=== PATIENT | female | born 1935 | race African-American/Black ===

== ENCOUNTER 2018-03-09 06:04 | Inpatient (IN) | payer MEDICARE, MEDICAID ==
[~2018-03-09] VITALS: Ht 165.1 cm; Wt 51.7 kg
[~2018-03-09 06:04] MED LIST: CARV6.2548 PO; CINA30 PO; DILT360C31 PO; FURO20TA4 PO; HYDR10TA34 PO; NEPVIT PO; OMEP20CA10 PO; PRAV40TA58 PO; SEVE800T8 PO
[2018-03-09 07:59] LABS: BASOPHILS % 0.9 % (0.0-2.0); EOSINOPHILS % 4.1 % (0.0-5.0); HEMATOCRIT. 35.1 % (36.0-48.0); LYMPHOCYTES % 9.6 % (20.0-50.0); MEAN CORPUSCULAR HEMOGLOBIN 27.2 pg (28.0-32.0); MEAN CORPUSCULAR VOLUME 87.3 fL (81.0-99.0); MEAN PLATELET VOLUME 8.9 fl (7.4-10.4); MONOCYTES % 6.7 % (2.0-8.0); NEUTROPHILS % 78.7 % (40.0-76.0); PLATELET 362 x1000/uL (130-400); RED BLOOD CELL COUNT 4.03 mill/uL (4.2-5.4); RED CELL DISTRIBUTION WIDTH 19.8 % (11.6-14.6)
[2018-03-09 09:17] LABS: CHLORIDE 101 mEq/L (98-107)
[2018-03-09 09:19] LABS: INR 1.1; PARTIAL THROMBOPLASTIN TIME 26.4 sec (23.4-31.0); PROTHROMBIN TIME 11.1 sec (9.1-11.1)
[2018-03-09 16:22] VITALS: BP 135/59
[2018-03-09 16:50] VITALS: BP 135/59
[2018-03-09] MEDS ORDERED: PANT40TA4 PO (17:56)
[2018-03-09] MEDS ORDERED: TRAV2.5D OP (17:56)
[2018-03-09] MEDS ORDERED: SUCR1TAB PO (17:56)
[2018-03-09] MEDS ORDERED: FURO40TA5 PO (17:56)
[2018-03-09] MEDS ORDERED: ACET-2178 PO (17:56)
[2018-03-09] MEDS ORDERED: FOLI1TAB63 PO (17:56)
[2018-03-09] MEDS ORDERED: ATOR20TA65 PO (17:56)
[2018-03-09] MEDS ORDERED: ONDANSETRON HCL 4MG/2ML INJ IV PRN (18:00)
[2018-03-09] MEDS ORDERED: ACETAMINOPHEN 325MG TABLET PO PRN (18:00)
[2018-03-09] MEDS ORDERED: MAGNESIUM/ALUMINUM HYDROXIDE/SIMETHICONE 30ML UDC PO PRN (18:00)
[2018-03-09] MEDS ORDERED: IPRATROPIUM/ALBUTEROL 0.5-3(2.5)MG/3ML NEB INH PRN (18:00)
[2018-03-09] MEDS ORDERED: DIPHENHYDRAMINE 50MG/ML VIAL IV PRN (18:00)
[2018-03-09] MEDS ORDERED: CLONIDINE 0.1MG TABLET PO PRN (18:00)
[2018-03-09] MEDS ORDERED: LORAZEPAM 2MG/ML CPJ IV PRN (18:00)
[2018-03-09] MEDS ORDERED: HYDROCODONE/APAP 7.5/325MG 1 TAB TABLET PO PRN (18:00)
[2018-03-09] MEDS ORDERED: HYDRALAZINE 20MG/ML VIAL IV PRN (18:00)
[2018-03-09] MEDS ORDERED: GUAIFENESIN 200MG/10ML SUGAR FREE UDC PO PRN (18:00)
[2018-03-09] MEDS ORDERED: HYDROMORPHONE HCL/PF 2MG/ML CPJ IV PRN (18:00)
[2018-03-09] MEDS ORDERED: DOCUSATE SODIUM 100MG CAPSULE PO PRN (18:00)
[2018-03-09 20:00] VITALS: BP 130/58
[2018-03-09] MEDS: SODIUM CHLORIDE 0.9% INJ 3ML FLUSH IVF SCH (22:13)
[2018-03-09 22:21] LABS: CREATINE KINASE 23 IU/L (26-192)
[2018-03-09 22:22] LABS: CREATINE KINASE MB FRACTION < 1.0 ng/mL (0.5-3.6)
[2018-03-10] VITALS (8 sets, daily range): BP systolic 105–128; BP diastolic 43–74
[2018-03-10] MEDS: SODIUM CHLORIDE 0.9% INJ 3ML FLUSH IVF SCH ×3 (05:35→21:04)
[2018-03-10 06:44] LABS: BASOPHILS % 0.8 % (0.0-2.0); EOSINOPHILS % 11.5 % (0.0-5.0); HEMATOCRIT. 29.8 % (36.0-48.0); HEMOGLOBIN. 9.6 g/dL (12.0-16.0); LYMPHOCYTES % 24.3 % (20.0-50.0); MEAN CORPUSCULAR HEMOGLOBIN 27.7 pg (28.0-32.0); MEAN CORPUSCULAR VOLUME 86.1 fL (81.0-99.0); MEAN PLATELET VOLUME 8.4 fl (7.4-10.4); NEUTROPHILS % 54.4 % (40.0-76.0); PLATELET 425 x1000/uL (130-400); RED BLOOD CELL COUNT 3.46 mill/uL (4.2-5.4); RED CELL DISTRIBUTION WIDTH 19.2 % (11.6-14.6)
[2018-03-10 06:47] LABS: CHLORIDE 105 mEq/L (98-107)
[2018-03-10 06:57] LABS: CREATINE KINASE 16 IU/L (26-192); T4 FREE 1.04 ng/dL (0.76-1.46)
[2018-03-10 06:59] LABS: CREATINE KINASE MB FRACTION < 1.0 ng/mL (0.5-3.6)
[2018-03-10] MEDS: CARVEDILOL 6.25 MG TABLET PO SCH (21:00)
[2018-03-11] VITALS: BP 129/55
[2018-03-11 04:00] VITALS: BP 122/60
[2018-03-11] MEDS: SODIUM CHLORIDE 0.9% INJ 3ML FLUSH IVF SCH (06:13)
[2018-03-11 08:00] VITALS: BP 128/57
[2018-03-11 08:01] LABS: BASOPHILS % 0.8 % (0.0-2.0); EOSINOPHILS % 11.4 % (0.0-5.0); HEMATOCRIT. 31.6 % (36.0-48.0); LYMPHOCYTES % 24.5 % (20.0-50.0); MEAN CORPUSCULAR HEMOGLOBIN 27.2 pg (28.0-32.0); MEAN CORPUSCULAR VOLUME 86.1 fL (81.0-99.0); MEAN PLATELET VOLUME 8.3 fl (7.4-10.4); MONOCYTES % 8.5 % (2.0-8.0); NEUTROPHILS % 54.8 % (40.0-76.0); PLATELET 393 x1000/uL (130-400); RED BLOOD CELL COUNT 3.66 mill/uL (4.2-5.4); RED CELL DISTRIBUTION WIDTH 18.9 % (11.6-14.6)
[2018-03-11] MEDS: CARVEDILOL 6.25 MG TABLET PO SCH (09:21)
[2018-03-11 12:00] VITALS: BP 127/79
[2018-03-11 12:54] VITALS: BP 121/79
== END 2018-03-11 14:15 | disposition home or self-care (01) | DRG 377 ==
LOC: ER 06:04 → 8WST 11:52 → EDBEDREQ 11:54 → ENRESERV 14:01
PROVIDERS: ADMIT Internal Medicine; ATTEND Internal Medicine
PROC: 5A1D70Z Performance of Urinary Filtration, Intermittent, Less than 6 Hours Per Day (ICD-10-PCS; principal; 2018-03-10)
DX: K29.71 Gastritis, unspecified, with bleeding (principal); N18.6 End stage renal disease; I12.0 Hypertensive chronic kidney disease with stage 5 chronic kidney disease or end stage renal disease; J90 Pleural effusion, not elsewhere classified; R65.10 Systemic inflammatory response syndrome (SIRS) of non-infectious origin without acute organ dysfunction; E46 Unspecified protein-calorie malnutrition; Z68.1 Body mass index [BMI] 19.9 or less, adult; D64.9 Anemia, unspecified; E11.22 Type 2 diabetes mellitus with diabetic chronic kidney disease; E87.70 Fluid overload, unspecified; I25.10 Atherosclerotic heart disease of native coronary artery without angina pectoris; Z99.2 Dependence on renal dialysis; Z88.8 Allergy status to other drugs, medicaments and biological substances; Z79.84 Long term (current) use of oral hypoglycemic drugs
CPT/HCPCS: 36415; 71045; 80048; 82550; 82553; 84439; 84443; 84484; 93005; 96374; 96375; 99285; J1200

== ENCOUNTER 2018-03-26 05:53 | Inpatient (IN) | payer MEDICARE, MEDICAID ==
[~2018-03-26] VITALS: Ht 152.4 cm; Wt 52.6 kg
[~2018-03-26 05:53] MED LIST changes: +ACET-2178 PO; +ATOR20TA65 PO; -DILT360C31 PO; +FOLI1TAB63 PO; -FURO20TA4 PO; +FURO40TA5 PO; -HYDR10TA34 PO; -OMEP20CA10 PO; +PANT40TA4 PO; -PRAV40TA58 PO; -SEVE800T8 PO; +SUCR1TAB PO; +TRAV2.5D OP
[2018-03-26] MEDS ORDERED: IPRATROPIUM BROMIDE (0.02%) 0.5MG/2.5ML NEB HHN STA (06:33)
[2018-03-26] MEDS ORDERED: ALBUTEROL (0.083%) 2.5MG/3ML NEB HHN STA (06:33)
[2018-03-26] MEDS ORDERED: PIPERACILLIN/TAZ 3.375G PREMIX 50 ML IV ONE (08:15)
[2018-03-26] MEDS ORDERED: LEVOFLOXACIN 500MG PREMIX 100 ML IV ONE (08:15)
[2018-03-26 08:50] LABS: CHLORIDE 100 mEq/L (98-107)
[2018-03-26 08:51] LABS: BASOPHILS % 0.4 % (0.0-2.0); HEMATOCRIT. 27.8 % (36.0-48.0); HEMOGLOBIN. 8.7 g/dL (12.0-16.0); LYMPHOCYTES % 12.8 % (20.0-50.0); MEAN CORPUSCULAR HEMOGLOBIN 26.2 pg (28.0-32.0); MEAN CORPUSCULAR VOLUME 83.5 fL (81.0-99.0); MEAN PLATELET VOLUME 8.5 fl (7.4-10.4); MONOCYTES % 11.5 % (2.0-8.0); NEUTROPHILS % 70.3 % (40.0-76.0); PLATELET 437 x1000/uL (130-400); RED BLOOD CELL COUNT 3.33 mill/uL (4.2-5.4); RED CELL DISTRIBUTION WIDTH 18.6 % (11.6-14.6)
[2018-03-26 08:53] LABS: INR 1.1; PARTIAL THROMBOPLASTIN TIME 27.5 sec (23.4-31.0); PROTHROMBIN TIME 11.4 sec (9.1-11.1)
[2018-03-26 08:57] LABS: PHOSPHORUS 3.2 mg/dL (2.5-4.9)
[2018-03-26] MEDS ORDERED: NA PHOS,M-B/NA PHOS,DI-BA ENEMA 118ML PR PRN (09:15)
[2018-03-26] MEDS ORDERED: LEVOFLOXACIN 500MG PREMIX 100 ML IV SCH (09:15)
[2018-03-26] MEDS ORDERED: ONDANSETRON HCL 4MG/2ML INJ IV PRN (09:15)
[2018-03-26] MEDS ORDERED: MAGNESIUM/ALUMINUM HYDROXIDE/SIMETHICONE 30ML UDC PO PRN (09:15)
[2018-03-26] MEDS ORDERED: ENOXAPARIN 40MG/0.4ML SYR SUBCUT SCH (09:15)
[2018-03-26] MEDS ORDERED: MORPHINE SULFATE 4 MG/ML CPJ (NOT FOR IM USE) IV PRN (09:15)
[2018-03-26] MEDS ORDERED: LORAZEPAM 2MG/ML CPJ IV PRN (09:15)
[2018-03-26] MEDS ORDERED: CLONIDINE 0.1MG TABLET PO PRN (09:15)
[2018-03-26] MEDS ORDERED: GUAIFENESIN 200MG/10ML SUGAR FREE UDC PO PRN (09:15)
[2018-03-26] MEDS ORDERED: HYDROCODONE/ACETAMINOPHEN 5/325MG TABLET PO PRN (09:15)
[2018-03-26] MEDS ORDERED: IPRATROPIUM/ALBUTEROL 0.5-3(2.5)MG/3ML NEB INH PRN (09:15)
[2018-03-26] MEDS ORDERED: DOCUSATE SODIUM 100MG CAPSULE PO PRN (09:15)
[2018-03-26] MEDS ORDERED: DIPHENHYDRAMINE 50MG/ML VIAL IV PRN (09:15)
[2018-03-26 16:53] VITALS: BP 125/53
[2018-03-26] MEDS ORDERED: CEFTRIAXONE 1 G PREMIX 50 ML IV ONE (17:00)
[2018-03-26] MEDS: ENOXAPARIN 30MG/0.3ML SYR SUBCUT SCH (17:30)
[2018-03-26] MEDS: CARVEDILOL 3.125 MG TABLET PO SCH (17:41)
[2018-03-26] MEDS ORDERED: CEFTRIAXONE 1,000 MG in DEXTROSE 5% WATER 50 ML IV NR (18:30)
[2018-03-26 20:00] VITALS: BP 117/44
[2018-03-26] MEDS: IPRATROPIUM/ALBUTEROL 0.5-3(2.5)MG/3ML NEB HHN SCH (20:29)
[2018-03-26] MEDS ORDERED: DEXTROSE 50% WATER 50ML SYRINGE IV PRN (20:30)
[2018-03-26] MEDS: AZITHROMYCIN 500 MG in DEXT 5% WATER 250 ML IV SCH (20:49)
[2018-03-26] MEDS: ACETAMINOPHEN 325MG TABLET PO PRN (20:50)
[2018-03-26] MEDS: BLOOD SUGAR DIAGNOSTIC STRIP TEST SCH (20:50)
[2018-03-26] MEDS: AMLODIPINE 5MG TABLET PO SCH (20:50)
[2018-03-26] MEDS: INSULIN LISPRO 100 UNITS/ML SUBCUT SCH (20:50)
[2018-03-27] VITALS: BP 121/52
[2018-03-27] MEDS: IPRATROPIUM/ALBUTEROL 0.5-3(2.5)MG/3ML NEB HHN SCH ×4 (01:00→21:15)
[2018-03-27 04:00] VITALS: BP 133/62
[2018-03-27] MEDS: BLOOD SUGAR DIAGNOSTIC STRIP TEST SCH ×4 (07:40→21:00)
[2018-03-27 08:00] VITALS: BP 102/89
[2018-03-27 08:05] LABS: CHLORIDE 102 mEq/L (98-107)
[2018-03-27 08:06] LABS: HEMATOCRIT. 28.2 % (36.0-48.0); HEMOGLOBIN. 8.9 g/dL (12.0-16.0); MEAN CORPUSCULAR HEMOGLOBIN 26.3 pg (28.0-32.0); MEAN CORPUSCULAR VOLUME 83.7 fL (81.0-99.0); MEAN PLATELET VOLUME 8.5 fl (7.4-10.4); PLATELET 422 x1000/uL (130-400); RED BLOOD CELL COUNT 3.36 mill/uL (4.2-5.4); RED CELL DISTRIBUTION WIDTH 18.7 % (11.6-14.6)
[2018-03-27] MEDS: INSULIN LISPRO 100 UNITS/ML SUBCUT SCH ×4 (08:10→21:00)
[2018-03-27 08:19] LABS: LDL CHOLESTEROL 36 mg/dL (5-100)
[2018-03-27 08:21] LABS: HDL CHOLESTEROL 48 mg/dL (40-59)
[2018-03-27] MEDS: AMLODIPINE 5MG TABLET PO SCH ×2 (09:00→21:59)
[2018-03-27] MEDS: CARVEDILOL 3.125 MG TABLET PO SCH ×2 (09:00→17:42)
[2018-03-27] MEDS: ASPIRIN 81MG EC TABLET PO SCH (09:00)
[2018-03-27 12:00] VITALS: BP 108/50
[2018-03-27 13:34] LABS: PLATELET ESTIMATE SLIGHTLY INCREASED
[2018-03-27] MEDS: ENOXAPARIN 30MG/0.3ML SYR SUBCUT SCH (17:30)
[2018-03-27 20:00] VITALS: BP_SYST 107; BP_SYST 115; BP_DIAS 39; BP_DIAS 53
[2018-03-27] MEDS: BUDESONIDE 0.5MG/2ML NEB HHN SCH (21:15)
[2018-03-27] MEDS: AZITHROMYCIN 500 MG in DEXT 5% WATER 250 ML IV SCH (21:57)
[2018-03-27] MEDS: ACETAMINOPHEN 325MG TABLET PO PRN (22:56)
[2018-03-28] VITALS: BP 105/34
[2018-03-28] MEDS: IPRATROPIUM/ALBUTEROL 0.5-3(2.5)MG/3ML NEB HHN SCH ×2 (02:31→22:07)
[2018-03-28 04:00] VITALS: BP 107/47
[2018-03-28] MEDS: BLOOD SUGAR DIAGNOSTIC STRIP TEST SCH ×4 (07:40→21:00)
[2018-03-28 08:00] VITALS: BP 124/54
[2018-03-28] MEDS: INSULIN LISPRO 100 UNITS/ML SUBCUT SCH ×4 (08:10→21:00)
[2018-03-28] MEDS: AMLODIPINE 5MG TABLET PO SCH ×2 (10:32→20:57)
[2018-03-28] MEDS: ASPIRIN 81MG EC TABLET PO SCH (10:32)
[2018-03-28] MEDS: CARVEDILOL 3.125 MG TABLET PO SCH ×2 (10:33→18:48)
[2018-03-28 12:00] VITALS: BP 144/65
[2018-03-28 16:00] VITALS: BP 137/61
[2018-03-28] MEDS: ENOXAPARIN 30MG/0.3ML SYR SUBCUT SCH (18:49)
[2018-03-28 20:00] VITALS: BP 106/42
[2018-03-28] MEDS: AZITHROMYCIN 500 MG in DEXT 5% WATER 250 ML IV SCH (20:45)
[2018-03-28] MEDS: ACETAMINOPHEN 325MG TABLET PO PRN (21:05)
[2018-03-28] MEDS: BUDESONIDE 0.5MG/2ML NEB HHN SCH (22:08)
[2018-03-29] VITALS (7 sets, daily range): BP systolic 92–122; BP diastolic 37–70
[2018-03-29] MEDS: IPRATROPIUM/ALBUTEROL 0.5-3(2.5)MG/3ML NEB HHN SCH ×4 (02:37→21:34)
[2018-03-29] MEDS: INSULIN LISPRO 100 UNITS/ML SUBCUT SCH ×4 (06:35→21:00)
[2018-03-29] MEDS: BLOOD SUGAR DIAGNOSTIC STRIP TEST SCH ×4 (06:35→21:32)
[2018-03-29] MEDS: BUDESONIDE 0.5MG/2ML NEB HHN SCH ×2 (08:30→21:34)
[2018-03-29] MEDS: CARVEDILOL 3.125 MG TABLET PO SCH ×2 (09:00→18:06)
[2018-03-29] MEDS: AMLODIPINE 5MG TABLET PO SCH ×2 (09:00→21:00)
[2018-03-29] MEDS: ASPIRIN 81MG EC TABLET PO SCH (09:03)
[2018-03-29 15:26] LABS: HEMATOCRIT 30.2 % (36.0-48.0); HEMOGLOBIN 9.3 g/dL (12.0-16.0); MEAN CORPUSCULAR HEMOGLOBIN 26.1 pg (28.0-32.0); MEAN CORPUSCULAR VOLUME 84.9 fL (81.0-99.0); PLATELET 354 x1000/uL (130-400); RED BLOOD CELL COUNT 3.55 mill/uL (4.2-5.4)
[2018-03-29] MEDS: ENOXAPARIN 30MG/0.3ML SYR SUBCUT SCH (18:07)
[2018-03-30] MEDS: IPRATROPIUM/ALBUTEROL 0.5-3(2.5)MG/3ML NEB HHN SCH ×3 (01:30→14:32)
[2018-03-30 04:00] VITALS: BP 107/44
[2018-03-30] MEDS: AZITHROMYCIN 500 MG in DEXT 5% WATER 250 ML IV SCH (06:48)
[2018-03-30 06:51] LABS: HEMATOCRIT. 27.4 % (36.0-48.0); HEMOGLOBIN. 8.6 g/dL (12.0-16.0); MEAN CORPUSCULAR HEMOGLOBIN 26.4 pg (28.0-32.0); MEAN CORPUSCULAR VOLUME 83.7 fL (81.0-99.0); MEAN PLATELET VOLUME 8.5 fl (7.4-10.4); PLATELET 390 x1000/uL (130-400); RED BLOOD CELL COUNT 3.27 mill/uL (4.2-5.4); RED CELL DISTRIBUTION WIDTH 18.6 % (11.6-14.6)
[2018-03-30] MEDS: INSULIN LISPRO 100 UNITS/ML SUBCUT SCH ×2 (07:42→13:03)
[2018-03-30] MEDS: BLOOD SUGAR DIAGNOSTIC STRIP TEST SCH ×3 (07:42→18:12)
[2018-03-30 08:00] VITALS: BP 109/52
[2018-03-30] MEDS: BUDESONIDE 0.5MG/2ML NEB HHN SCH (08:18)
[2018-03-30] MEDS ORDERED: AZITHROMYCIN 500 MG TABLET PO SCH (09:00)
[2018-03-30] MEDS: AMLODIPINE 5MG TABLET PO SCH ×2 (09:05→21:00)
[2018-03-30] MEDS: ASPIRIN 81MG EC TABLET PO SCH (09:05)
[2018-03-30] MEDS: ACETAMINOPHEN 325MG TABLET PO PRN (09:10)
[2018-03-30] MEDS: CARVEDILOL 3.125 MG TABLET PO SCH ×2 (09:11→17:00)
[2018-03-30 10:48] LABS: PLATELET ESTIMATE NORMAL
[2018-03-30 12:00] VITALS: BP 145/83
[2018-03-30 16:00] VITALS: BP 120/52
[2018-03-30] MEDS: ENOXAPARIN 30MG/0.3ML SYR SUBCUT SCH (18:15)
[2018-03-30 19:09] VITALS: BP 125/55
[2018-03-30 20:00] VITALS: BP 125/51
== END 2018-03-30 21:25 | disposition home or self-care (01) | DRG 871 ==
LOC: ER 05:53 → 7WST 08:19 → EDBEDREQ 08:23 → EDBEDREQSVC 08:23 → EDBEDREQTM 08:23 → CANRESERV 10:06 → ENRESERV 10:06
PROVIDERS: ADMIT Internal Medicine; ATTEND Internal Medicine
PROC: 5A1D70Z Performance of Urinary Filtration, Intermittent, Less than 6 Hours Per Day (ICD-10-PCS; principal; 2018-03-26)
PROC: 5A1D70Z Performance of Urinary Filtration, Intermittent, Less than 6 Hours Per Day (ICD-10-PCS; 2018-03-27)
PROC: 5A1D70Z Performance of Urinary Filtration, Intermittent, Less than 6 Hours Per Day (ICD-10-PCS; 2018-03-29)
DX: A41.9 Sepsis, unspecified organism (principal); J69.0 Pneumonitis due to inhalation of food and vomit; J96.00 Acute respiratory failure, unspecified whether with hypoxia or hypercapnia; N18.6 End stage renal disease; E46 Unspecified protein-calorie malnutrition; J90 Pleural effusion, not elsewhere classified; I13.2 Hypertensive heart and chronic kidney disease with heart failure and with stage 5 chronic kidney disease, or end stage renal disease; D63.1 Anemia in chronic kidney disease; E87.5 Hyperkalemia; Z99.2 Dependence on renal dialysis; I50.9 Heart failure, unspecified; I25.10 Atherosclerotic heart disease of native coronary artery without angina pectoris; J44.9 Chronic obstructive pulmonary disease, unspecified; E11.22 Type 2 diabetes mellitus with diabetic chronic kidney disease; E78.5 Hyperlipidemia, unspecified; I48.0 Paroxysmal atrial fibrillation; Z82.49 Family history of ischemic heart disease and other diseases of the circulatory system; Z86.711 Personal history of pulmonary embolism; Z87.891 Personal history of nicotine dependence; Z91.018 Allergy to other foods; Z68.22 Body mass index [BMI] 22.0-22.9, adult
CPT/HCPCS: 36415; 71045; 80048; 80061; 82962; 83735; 84100; 84484; 85027; 93005; 94640; 96374; 96375; 99291; J0456; J0696; J1200; J1650; J1956; J2543; J7050; J7060; J7611; J7620; J7626

== ENCOUNTER 2019-01-11 08:46 | Emergency (ER) | payer MEDICARE, MEDICAID ==
[~2019-01-11] VITALS: Ht 165.1 cm; Wt 64.0 kg
[~2019-01-11 08:46] MED LIST changes: -ACET-2178 PO; +TOPUD PO
[2019-01-11 09:56] LABS: EOSINOPHILS % 7.6 % (0.0-5.0); HEMATOCRIT. 36.2 % (36.0-48.0); HEMOGLOBIN. 11.9 g/dL (12.0-16.0); LYMPHOCYTES % 17.7 % (20.0-50.0); MEAN CORPUSCULAR HEMOGLOBIN 28.4 pg (28.0-32.0); MEAN CORPUSCULAR VOLUME 86.8 fL (81.0-99.0); MEAN PLATELET VOLUME 8.4 fl (7.4-10.4); MONOCYTES % 13.1 % (2.0-8.0); NEUTROPHILS % 60.6 % (40.0-76.0); PLATELET 232 x1000/uL (130-400); RED BLOOD CELL COUNT 4.17 mill/uL (4.2-5.4); RED CELL DISTRIBUTION WIDTH 17.6 % (11.6-14.6)
[2019-01-11 10:00] LABS: CHLORIDE 99 mEq/L (98-107)
[2019-01-11 10:03] LABS: INR 1.1; PARTIAL THROMBOPLASTIN TIME 25.7 sec (23.4-31.0); PROTHROMBIN TIME 11.2 sec (9.6-11.0)
[2019-01-11 14:53] VITALS: BP 157/68
== END 2019-01-11 14:57 | disposition home or self-care (01) ==
LOC: ER 08:46
DX: T82.41XA Breakdown (mechanical) of vascular dialysis catheter, initial encounter (principal); I77.0 Arteriovenous fistula, acquired; N28.9 Disorder of kidney and ureter, unspecified; E11.9 Type 2 diabetes mellitus without complications; Z79.899 Other long term (current) drug therapy
CPT/HCPCS: 36415; 82962; 99283